=== PATIENT | female | born 1935 | race Hispanic/Latino ===

== ENCOUNTER 2018-07-03 10:50 | Emergency (ER) | payer OTHER ==
[~2018-07-03] VITALS: Ht 165.1 cm; Wt 72.1 kg
[~2018-07-03 10:50] MED LIST: DOXYCYCLINE HY100 MG PO; OMEPRAZOLE40 MG PO; SIMVASTATIN20 MG PO; VASOTEC5 MG PO
--- OUTSIDE RECORDS SUMMARY | 2018-07-03 10:52 | XMS REPORT ---
[facility] Address Unknown Phone Unavailable Care Team Providers Care Clinic Lpn Name Role Phone Unavailable Unavailable Problems This patient has no known problems. Allergies, Adverse Reactions, Alerts This patient has no known allergies or adverse reactions. Medications This patient has no known medications. Results Test Description Test Time Test Comments Text Results Atomic Results Result Comments SCR MAMM BILATERAL RIN CAD DIGITAL 2018-06-15 14:02:47 - SCR MAMM BILATERAL RIN CAD DIGITALBILATERAL DIGITAL SCREENING MAMMOGRAM 3D/2D WITH CAD: 06/08/2018CLINICAL: Asymptomatic. Digital breast tomosynthesis was performed in addition to routine CC and MLO views. Current mammographic images were evaluated by either a [employer] M-Vu or a [employer] ImageChecker CAD (computer aided detection system). Comparison is made to exams dated 04/23/2016 mammogram, 016 mammogram, 03/30/2014 mammogram, 01/26/2013 mammogram, and 04/05/2012 mammogram - [facility]. There are scattered fibroglandular tissues in both breasts. There are benign calcifications in the left breast. No suspicious mass, architectural distortion, malignant type calcification, or lymph node abnormality detected. Breast architecture is stable compared to prior exams.IMPRESSION: BENIGNThere is no mammographic evidence of malignancy. Resume annual screening mammography in one year. Jabier Vee M.D. et/penrad:06/15/2018 14:02:47 Attending Technologist: Gita Reed MM, [facility] Mobile MammographyImaging Technologist: Mary Cota MM, [facility] Mobile Mammographyletter sent: BIRADS 1-2 Normal Mammogram BI-RADS: 2 Benign
--- OUTSIDE RECORDS SUMMARY | 2018-07-03 10:52 | XMS REPORT | Clinical Summary ---
Author Author [facility] Address Unknown Phone Unavailable Care Team Providers Care Sanitarian Inspector Name Role Phone Helen Lockhatr MD PCP Allergies No Known Allergies Medications End Date Status Medication Sig Dispensed Refills Start Date Active simvastatin (ZOCOR) 5 MG Take 5 mg by 0 tablet mouth nightly. Active enalapril (VASOTEC) 10 MG Take 10 mg by 0 tablet mouth 2 (two) times a day. Active ferrous sulfate 325 (65 Take 325 mg 0 FE) MG tablet by mouth daily with breakfast. Active Problems Not on file Social History Date Tobacco Use Types Packs/Day Years Used Never Smoker Smokeless Tobacco: Never Used Alcohol Use Drinks/Week oz/Week Comments No Sex Assigned at Date Recorded Not on file Industry Job Start Date Occupation Not on file Not on file Not on file Travel End Travel History Travel Start No recent travel history available. Last Filed Vital Signs Not on file Plan of Treatment Health Maintenance Due Date Last Done Comments SHINGLES VACCINES (#1) 1984 65+ PNEUMOCOCCAL VACCINE 10/07/1999 (1 of 2 - PCV13) PNEUMOCOCCAL 10/07/1999 POLYSACCHARIDE VACCINE AGE 65 AND OVER INFLUENZA VACCINE 09/22/2018 Results Not on fileafter 07/02/2017 Insurance Payer Benefit Subscriber ID Type Phone Address Plan / Group [employer] xxxxxxxxx O [facility] (Home) [place] [address] Advance Directives Patient has advance care planning documents on file. For more information, clara orellana contact: Juni Guerra [address] [place] [address]
[2018-07-03] MEDS ORDERED: SODIUM CHLORIDE 0.9% 1000ML 1,000 ML IV STA (11:36)
[2018-07-03] MEDS ORDERED: DIATRIZOATE MEGL/DIATRIZOA SOD 30 ML BTL PO ONE (11:54)
[2018-07-03 12:33] LABS: BASOPHILS % 0.1 % (0.0-1.0); EOSINOPHILS % 0.1 % (0.0-6.0); HEMATOCRIT 37.1 % (34.2-44.1); LYMPHOCYTES # (AUTO) 1.8 (1.0-3.2); LYMPHOCYTES % 17.5 % (18.0-39.1); MEAN CORPUSCULAR HEMOGLOBIN 29.4 pg (28-32); MEAN CORPUSCULAR VOLUME 83.9 fL (81-99); MONOCYTES # (AUTO) 0.6 (0.2-0.8); PLATELET COUNT 221 x10e3/uL (140-360); RED BLOOD COUNT 4.42 x10e6/uL (3.6-5.1); RED CELL DISTRIBUTION WIDTH 12.6 % (11.7-14.4)
[2018-07-03 12:35] LABS: CLARITY,URINE HAZY (CLEAR); COLOR,URINE YELLOW (YELLOW); LEUKOCYTE ESTERASE ,URINE NEGATIVE (NEGATIVE)
[2018-07-03 12:36] LABS: BILIRUBIN,URINE NEGATIVE (NEGATIVE); KETONES,URINE NEGATIVE (NEGATIVE); NITRITE,URINE NEGATIVE (NEGATIVE); PROTEIN,URINE DIPSTICK NEGATIVE (NEGATIVE); URINE UROBILINOGEN 0.2 mg/dL (0.2 - 1)
[2018-07-03 12:38] LABS: BACTERIA,URINE FEW /HPF; EPITHELIAL CELLS,URINE FEW /LPF; WBC,URINE (MAN) 0-5 /HPF (0-5)
[2018-07-03 12:42] LABS: INR 0.96; PROTHROMBIN TIME 13.3 seconds (11.9-14.5)
[2018-07-03 12:43] LABS: PARTIAL THROMBOPLASTIN TIME 33.8 seconds (23.8-35.5)
--- NOTE | 2018-07-03 12:44 | Diagnostic Imaging Report ---
EXAMINATION: CHEST SINGLE (PORTABLE) COMPARISON: None INDICATION: Abdominal pain/pain in groin ^ABD PAIN ^[id number] ^1225 DISCUSSION: Frontal view of the chest obtained at 1224 hours. HEART AND MEDIASTINUM: The heart is mildly enlarged. The aorta contains calcifications in the arch. LINES: None. LUNGS: The lungs are well inflated and clear. No pneumonia or pulmonary edema. PLEURA: No pleural effusion or pneumothorax. BONES AND SOFT TISSUES: No focal osseous lesion. The soft tissues are normal. IMPRESSION: Mild cardiomegaly without vascular congestion. No acute pulmonary process. Signed by: Dr. Walter Medina MD on 07/03/2018 12:40 PM
[2018-07-03 12:50] LABS: ALANINE AMINOTRANSFERASE 17 IU/L (0-55); ALBUMIN/GLOBULIN RATIO 1.1 (0.8-2.0); ALKALINE PHOSPHATASE 85 IU/L (40-150); ANION GAP 12.5 mmol/L (8-16); BLOOD UREA NITROGEN 8 mg/dL (7-26); BUN/CREATININE RATIO 10 (6-25); CALCIUM 9.8 mg/dL (8.4-10.2); CARBON DIOXIDE 27 mmol/L (22-29); CHLORIDE 105 mmol/L (98-107); CREATINE KINASE 59 IU/L (29-168); CREATININE, SERUM 0.82 mg/dL (0.57-1.11); EST GLOMERULAR FILTRATION RATE > 60 ML/MIN (60-); GLUCOSE 139 mg/dL (74-118); MAGNESIUM 2.2 MG/DL (1.3-2.1); POTASSIUM 3.5 mmol/L (3.5-5.1); SODIUM 141 mmol/L (136-145)
--- NOTE | 2018-07-03 14:50 | Diagnostic Imaging Report ---
CT Abdomen And Pelvis with Intravenous Contrast INDICATION: Abdominal pain, groin pain ^LLQ ABD PAIN TECHNIQUE: Thin collimation axial images obtained from the diaphragm to the level of the pubic symphysis following the uneventful administration of 100 cc of low osmolar, nonionic intravenous contrast. Oral contrast was administered. Dose reduction techniques used: Automated exposure control, adjustment of the mAs and/or kVp according to patient size, standardized low-dose protocol, and/or iterative reconstruction technique. RADIATION DOSE: Total DLP: 502.8 mGy*cm Estimated effective dose: (DLP x 0.015 x size factor) mSv CTDIvol has been reviewed. It is below the limits set by the Radiation Protocol Committee (RPC). COMPARISON: None. ABDOMEN FINDINGS: Lung Bases: Mild cardiomegaly. Microatelectasis of the lung bases. Small hiatal hernia. Liver: Steatosis. Round hypervascular lesion in segment 2/3 may represent a hemangioma or shunt. This measures 9 mm. Low attenuating lesion in segment 4 adjacent to the falciform ligament measures 1.3 x 1.4 cm. This has the appearance of a cyst Gallbladder: Absent. No biliary ductal dilatation. Pancreas: Diffuse fatty atrophy. No mass or ductal dilatation. Spleen: Normal in size. No evidence of mass.. Adrenal Glands: No evidence for mass. Kidneys: Right: Normal enhancement. Focal cortical defect in the lateral upper pole near Morison's pouch. No mass. No hydronephrosis. Left: Normal enhancement. No soft tissue mass. No hydronephrosis. Lymph Nodes: No enlarged upper abdominal or periaortic lymph nodes. Aorta: Normal in diameter and diffusely calcified PELVIS FINDINGS: Bowel: Stomach: Collapsed but normal. Small Bowel: Normal in diameter with normal wall thickness. Large Bowel: Circumferential mural thickening of the mid descending colon extends for 2.9 cm. There is diverticulosis coli of the mid descending colon with adjacent peritoneal inflammation and engorgement of the adjacent vasculature. Diverticulosis is present around the remainder of the colon. Appendix: Not visualized and may be absent. Bladder: Normal. The uterus is absent. There are no adnexal masses. Lymph nodes: No enlarged mesenteric, pelvic, or inguinal lymph nodes. Bones: Diffuse demineralization. Degenerative changes of the spine particularly at L5-S1. No focal osseous lesions. IMPRESSION: 1. Circumferential mural thickening of the mid descending colon with associated inflammation and the presence of diverticulosis. Findings are concerning for colon neoplasm. Please correlate for signs/symptoms of infection that would indicate diverticulitis. If there is a superimposed infectious process, recommend antibiotic treatment followed by colonoscopy. No bowel obstruction. 2. Steatosis. Cholecystectomy. Normal biliary tree. Signed by: Dr. Walter Medina MD on 07/03/2018 2:47 PM
[2018-07-03 16:08] VITALS: BP 167/63
[2018-07-03] MEDS ORDERED: IOPAMIDOL 370 MG/ML 200 ML INFUS..BTL INJ ONE (17:36)
[2018-07-03] MEDS ORDERED: SODIUM CHLORIDE 0.9% 50ML 50 ML ONE (17:36)
== END 2018-07-03 16:23 | disposition home or self-care (01) ==
LOC: ER 10:50
DX: R10.32 Left lower quadrant pain (principal); K57.32 Diverticulitis of large intestine without perforation or abscess without bleeding; I10 Essential (primary) hypertension; K21.9 Gastro-esophageal reflux disease without esophagitis
CPT/HCPCS: 36415; 71045; 74177; 80053; 81001; 82550; 82553; 83735; 84484; 85025; 85610; 85730; 87086; 93005; 99284; J7030; Q9967

== ENCOUNTER 2018-12-23 01:15 | Emergency (ER) | payer OTHER ==
[~2018-12-23] VITALS: Ht 152.4 cm; Wt 72.1 kg
--- OUTSIDE RECORDS SUMMARY | 2018-12-23 01:18 | XMS REPORT | Summary of Care ---
Author Author HERNESTO CALDERON Organization Unknown Address Unknown Phone Unavailable Care Team Providers Care Marketing Automation Analyst Name Role Phone HERNESTO CALDERON Unavailable Unavailable RUBEN HENSLEY, ASHLYN Mendez Unavailable Unavailable KRYSTIN KNAPP MD Unavailable Unavailable CHANELLE HENSLEY, LION Rodriguez Unavailable Unavailable Unavailable Unavailable Functional Status Name Dates Details Functional status health issues are not documented Status: Name Dates Details Cognitive status health issues are not documented Status: Problems Name Dates Details High blood pressure (401.9, I10) Status: Active Sensorineural hearing loss, bilateral (389.18, H90.3) Status: Active Medications Name Dates Details Enalapril Maleate TABS Active Allergies and Adverse Reactions Name Dates Details No Known Allergies (Allergy) Status: Active Procedures Procedure Dates Details History of Hysterectomy Completed History of Section Completed History of Ear Surgery Completed Immunization Name Dates Details Immunizations not documented Family History Name Dates Details No pertinent family history (V49.89, Z78.9) Comments: Other Status: Active Social History Name Dates Details - Status: Name Dates Details Never smoker Vital Signs Date Test Result Details No Known Vitals to report Results Date Description Value Details Results not documented Plan of Care Name Dates Details Planned Observations Planned Goals not documented Instructions Name Dates Details Instructions not documented Encounters Appointment; MICHAELA WORTHINGTON Encounter Diagnosis: Problem not documented On: 09-Sep-2018 13:00 Appointment; KRYSTIN KNAPP M.D. Encounter Diagnosis: Problem not documented On: 11-Oct-2018 14:30 Appointment; HERNESTO CALDERON Encounter Diagnosis: Problem not documented On: 01-Nov-2018 14:30
[2018-12-23] MEDS ORDERED: HYDRALAZINE HCL 20 MG/ML VIAL IV STA (01:19)
[2018-12-23] MEDS ORDERED: DIPHENHYDRAMINE HCL INJ 50 MG/ML VIAL IV ONE (01:30)
[2018-12-23] MEDS ORDERED: FAMOTIDINE 20 MG/2 ML VIAL IV SCH (01:30)
[2018-12-23] MEDS ORDERED: METHYLPREDNISOLONE SOD SUCC 125 MG/2ML VIAL IV ONE (01:30)
[2018-12-23 06:31] VITALS: BP 158/73
[2018-12-23] MEDS ORDERED: PREDNISONE20 MG PO (06:34)
== END 2018-12-23 06:48 | disposition home or self-care (01) ==
LOC: ER 01:15
DX: T78.3XXA Angioneurotic edema, initial encounter (principal); T46.4X5A Adverse effect of angiotensin-converting-enzyme inhibitors, initial encounter; I10 Essential (primary) hypertension; E78.5 Hyperlipidemia, unspecified; K21.9 Gastro-esophageal reflux disease without esophagitis
CPT/HCPCS: 99283; J0360; J1200; J2930

== ENCOUNTER 2020-05-07 09:40 | Emergency (ER) | payer OTHER ==
[~2020-05-07] VITALS: Ht 165.1 cm; Wt 72.1 kg
[~2020-05-07 09:40] MED LIST changes: +PREDNISONE20 MG PO
[2020-05-07] MEDS ORDERED: ASPIRIN 81 MG CHEW TAB PO ONE (09:45)
[2020-05-07 10:31] LABS: BASOPHILS % 0.5 % (0.0-1.0); EOSINOPHILS # (AUTO) 0.1 (0.0-0.4); EOSINOPHILS % 0.9 % (0.0-6.0); HEMATOCRIT 38.1 % (34.2-44.1); HEMOGLOBIN 12.9 g/dL (12.0-16.0); LYMPHOCYTES % 34.6 % (18.0-39.1); MEAN CORPUSCULAR HEMOGLOBIN 28.5 pg (28-32); MEAN CORPUSCULAR HGB CONC 33.9 g/dL (31-35); MEAN CORPUSCULAR VOLUME 84.1 fL (81-99); MONOCYTES # (AUTO) 0.4 (0.2-0.8); MONOCYTES % 6.9 % (4.4-11.3); NEUTROPHILS # (AUTO) 3.3 (2.1-6.9); NEUTROPHILS % 56.8 % (38.7-80.0); PLATELET COUNT 242 x10e3/uL (140-360); RED BLOOD COUNT 4.53 x10e6/uL (3.6-5.1); RED CELL DISTRIBUTION WIDTH 12.9 % (11.7-14.4)
[2020-05-07 10:53] LABS: ALANINE AMINOTRANSFERASE 14 IU/L (0-55); ALBUMIN 4.2 g/dL (3.5-5.0); ALKALINE PHOSPHATASE 62 IU/L (40-150); ANION GAP 14.6 mmol/L (8-16); BLOOD UREA NITROGEN 11 mg/dL (7-26); BUN/CREATININE RATIO 13 (6-25); CALCIUM 9.2 mg/dL (8.4-10.2); CARBON DIOXIDE 22 mmol/L (22-29); CHLORIDE 107 mmol/L (98-107); CREATINE KINASE 59 IU/L (29-168); CREATININE, SERUM 0.87 mg/dL (0.57-1.11); EST GLOMERULAR FILTRATION RATE > 60 ML/MIN (60-); GLUCOSE 152 mg/dL (74-118); POTASSIUM 3.6 mmol/L (3.5-5.1); SODIUM 140 mmol/L (136-145)
[2020-05-07] MEDS ORDERED: AUGMENTIN 875-1 EACH PO (11:44)
== END 2020-05-07 14:05 | disposition home or self-care (01) ==
LOC: ER 09:50
DX: J30.9 Allergic rhinitis, unspecified (principal); M79.89 Other specified soft tissue disorders; I10 Essential (primary) hypertension; E78.5 Hyperlipidemia, unspecified; K21.9 Gastro-esophageal reflux disease without esophagitis
CPT/HCPCS: 36415; 70486; 71045; 80053; 82550; 82553; 83880; 84484; 85025; 93005; 93971; 99284

== ENCOUNTER 2021-02-07 11:30 | Emergency (ER) | payer OTHER ==
[~2021-02-07] VITALS: Ht 165.1 cm; Wt 72.1 kg
[~2021-02-07 11:30] MED LIST changes: +AUGMENTIN 875-1 EACH PO
[2021-02-07] MEDS ORDERED: SODIUM CHLORIDE 0.9% 500ML 500 ML IV ONE (12:00)
[2021-02-07 12:03] LABS: BASOPHILS % 0.4 % (0.0-1.0); EOSINOPHILS % 0.3 % (0.0-6.0); HEMOGLOBIN 13.1 g/dL (12.0-16.0); LYMPHOCYTES # (AUTO) 1.5 (1.0-3.2); LYMPHOCYTES % 22.6 % (18.0-39.1); MEAN CORPUSCULAR HEMOGLOBIN 29.1 pg (28-32); MEAN CORPUSCULAR HGB CONC 32.8 g/dL (31-35); MEAN CORPUSCULAR VOLUME 88.9 fL (81-99); MONOCYTES # (AUTO) 0.4 (0.2-0.8); MONOCYTES % 5.7 % (4.4-11.3); NEUTROPHILS # (AUTO) 4.8 (2.1-6.9); NEUTROPHILS % 70.9 % (38.7-80.0); PLATELET COUNT 223 x10e3/uL (140-360); RED CELL DISTRIBUTION WIDTH 12.6 % (11.7-14.4)
[2021-02-07 12:23] LABS: ALANINE AMINOTRANSFERASE 14 IU/L (0-55); ALBUMIN 3.9 g/dL (3.5-5.0); ALBUMIN/GLOBULIN RATIO 1.1 (0.8-2.0); ALKALINE PHOSPHATASE 64 IU/L (40-150); ANION GAP 14.9 mmol/L (8-16); BLOOD UREA NITROGEN 10 mg/dL (7-26); BUN/CREATININE RATIO 13 (6-25); CALCIUM 9.7 mg/dL (8.4-10.2); CARBON DIOXIDE 25 mmol/L (22-29); CHLORIDE 104 mmol/L (98-107); CREATINE KINASE 75 IU/L (29-168); CREATININE, SERUM 0.75 mg/dL (0.57-1.11); EST GLOMERULAR FILTRATION RATE 73 ML/MIN (60-); GLUCOSE 118 mg/dL (74-118); MAGNESIUM 2.1 MG/DL (1.3-2.1); SODIUM 141 mmol/L (136-145)
[2021-02-07 12:26] LABS: POTASSIUM 2.9 mmol/L (3.5-5.1)
[2021-02-07 12:28] LABS: CLARITY,URINE CLEAR (CLEAR); COLOR,URINE YELLOW (YELLOW); KETONES,URINE NEGATIVE (NEGATIVE); LEUKOCYTE ESTERASE ,URINE NEGATIVE (NEGATIVE); NITRITE,URINE NEGATIVE (NEGATIVE); PROTEIN,URINE DIPSTICK NEGATIVE (NEGATIVE)
[2021-02-07 12:29] LABS: URINE UROBILINOGEN 0.2 mg/dL (0.2 - 1)
[2021-02-07 12:34] LABS: BACTERIA,URINE FEW /HPF; EPITHELIAL CELLS,URINE FEW /LPF; WBC,URINE (MAN) 0-5 /HPF (0-5)
[2021-02-07] MEDS ORDERED: POTASSIUM CHLORIDE 20 MEQ TAB CR PO STA (12:45)
== END 2021-02-07 14:41 | disposition home or self-care (01) ==
LOC: ER 11:52
DX: R42 Dizziness and giddiness (principal); E86.0 Dehydration; I10 Essential (primary) hypertension; E78.5 Hyperlipidemia, unspecified; K21.9 Gastro-esophageal reflux disease without esophagitis
CPT/HCPCS: 36415; 70450; 71045; 80053; 81001; 82550; 82553; 83735; 84484; 85025; 87086; 93005; 99284; J7040

== ENCOUNTER 2022-01-01 23:50 | Emergency (ER) | payer MEDICARE, OTHER ==
[~2022-01-01] VITALS: Ht 165.1 cm; Wt 72.1 kg
[2022-01-02 00:33] LABS: BASOPHILS % 0.3 % (0.0-1.0); EOSINOPHILS # (AUTO) 0.1 (0.0-0.4); EOSINOPHILS % 1.5 % (0.0-6.0); HEMATOCRIT 36.8 % (34.2-44.1); HEMOGLOBIN 12.2 g/dL (12.0-16.0); LYMPHOCYTES # (AUTO) 1.7 (1.0-3.2); LYMPHOCYTES % 28.1 % (18.0-39.1); MEAN CORPUSCULAR HEMOGLOBIN 29.6 pg (28-32); MEAN CORPUSCULAR HGB CONC 33.2 g/dL (31-35); MEAN CORPUSCULAR VOLUME 89.3 fL (81-99); MONOCYTES # (AUTO) 0.6 (0.2-0.8); MONOCYTES % 10.6 % (4.4-11.3); NEUTROPHILS # (AUTO) 3.5 (2.1-6.9); NEUTROPHILS % 59.3 % (38.7-80.0); PLATELET COUNT 199 x10e3/uL (140-360); RED BLOOD COUNT 4.12 x10e6/uL (3.6-5.1); RED CELL DISTRIBUTION WIDTH 12.7 % (11.7-14.4)
[2022-01-02 00:54] LABS: ALBUMIN 4.1 g/dL (3.5-5.0); ALBUMIN/GLOBULIN RATIO 1.1 (0.8-2.0); ANION GAP 14.9 mmol/L (8-16); CALCIUM 9.2 mg/dL (8.4-10.2); CREATININE, SERUM 0.85 mg/dL (0.57-1.11)
[2022-01-02 00:58] LABS: POTASSIUM 2.9 mmol/L (3.5-5.1)
[2022-01-02] MEDS ORDERED: POTASSIUM CHLORIDE 20 MEQ TAB CR PO STA (01:01)
[2022-01-02 01:31] LABS: BACTERIA,URINE RARE /HPF; CLARITY,URINE CLEAR (CLEAR); COLOR,URINE YELLOW (YELLOW); EPITHELIAL CELLS,URINE FEW /LPF; KETONES,URINE NEGATIVE (NEGATIVE); LEUKOCYTE ESTERASE ,URINE NEGATIVE (NEGATIVE); NITRITE,URINE NEGATIVE (NEGATIVE); PROTEIN,URINE DIPSTICK NEGATIVE (NEGATIVE); RBC,URINE 0-5 /HPF (0-5); URINE UROBILINOGEN 0.2 mg/dL (0.2 - 1); WBC,URINE (MAN) 0-5 /HPF (0-5)
[2022-01-02 02:05] VITALS: BP 162/74
== END 2022-01-02 02:05 | disposition home or self-care (01) ==
LOC: ER 01-02 00:11
DX: R00.2 Palpitations (principal); E87.6 Hypokalemia; I10 Essential (primary) hypertension; E78.5 Hyperlipidemia, unspecified; K21.9 Gastro-esophageal reflux disease without esophagitis; R94.31 Abnormal electrocardiogram [ECG] [EKG]
CPT/HCPCS: 36415; 71045; 80053; 81001; 83880; 84484; 85025; 93005; 99284

== ENCOUNTER 2022-04-26 18:48 | Emergency (ER) | payer MEDICARE ==
[~2022-04-26] VITALS: Ht 165.1 cm; Wt 72.1 kg
[2022-04-26 19:26] VITALS: BP 169/73
== END 2022-04-26 19:25 | disposition home or self-care (01) ==
LOC: ER 19:04
DX: I10 Essential (primary) hypertension (principal); E78.5 Hyperlipidemia, unspecified; K21.9 Gastro-esophageal reflux disease without esophagitis
CPT/HCPCS: 36415; 82948; 99283

== ENCOUNTER 2024-04-21 00:27 | Emergency (ER) | payer MEDICARE ==
[~2024-04-21] VITALS: Ht 165.1 cm; Wt 72.1 kg
[2024-04-21 00:45] VITALS: TEMP 98.1
[2024-04-21 00:56] LABS: BASOPHILS % 0.3 % (0.0-1.0); EOSINOPHILS % 0.6 % (0.0-6.0); HEMATOCRIT 37.9 % (34.2-44.1); HEMOGLOBIN 13.5 g/dL (12.0-16.0); LYMPHOCYTES # (AUTO) 1.2 (1.0-3.2); LYMPHOCYTES % 16.2 % (18.0-39.1); MEAN CORPUSCULAR HEMOGLOBIN 29.6 pg (28-32); MEAN CORPUSCULAR HGB CONC 35.6 g/dL (31-35); MEAN CORPUSCULAR VOLUME 83.1 fL (81-99); MONOCYTES # (AUTO) 0.6 (0.2-0.8); MONOCYTES % 8.3 % (4.4-11.3); NEUTROPHILS # (AUTO) 5.3 (2.1-6.9); NEUTROPHILS % 74.3 % (38.7-80.0); PLATELET COUNT 185 x10e3/uL (140-360); RED BLOOD COUNT 4.56 x10e6/uL (3.6-5.1); RED CELL DISTRIBUTION WIDTH 12.2 % (11.7-14.4); WHITE BLOOD COUNT 7.14 x10e3/uL (4.8-10.8)
[2024-04-21] MEDS: SODIUM CHLORIDE 0.9% 1000ML 1,000 ML IV STA (00:57)
[2024-04-21 01:24] LABS: ALBUMIN 4.1 g/dL (3.5-5.0); ALBUMIN/GLOBULIN RATIO 1.2 (0.8-2.0); ANION GAP 15.9 mmol/L (8-16); BILIRUBIN,TOTAL 1.3 mg/dL (0.2-1.2); CALCIUM 9.3 mg/dL (8.4-10.2); CREATININE, SERUM 0.85 mg/dL (0.57-1.11); TOTAL PROTEIN 7.6 g/dL (6.5-8.1)
[2024-04-21 01:31] LABS: BILIRUBIN,URINE SMALL (NEGATIVE); CLARITY,URINE CLOUDY (CLEAR); COLOR,URINE RED (YELLOW); GLUCOSE, URINE 500 (NEGATIVE); KETONES,URINE NEGATIVE (NEGATIVE); LEUKOCYTE ESTERASE ,URINE LARGE (NEGATIVE); NITRITE,URINE POSITIVE (NEGATIVE); PH,URINE 6 (5 - 7); PROTEIN,URINE DIPSTICK 1+ (NEGATIVE); URINE UROBILINOGEN 0.2 mg/dL (0.2 - 1)
[2024-04-21 01:43] LABS: RBC,URINE >50 /HPF (0-5)
[2024-04-21 01:44] LABS: BACTERIA,URINE MODERATE /HPF; EPITHELIAL CELLS,URINE FEW /LPF
[2024-04-21 01:50] LABS: POTASSIUM 2.9 mmol/L (3.5-5.1)
[2024-04-21] MEDS ORDERED: IOPAMIDOL 370 MG/ML 100 ML INFUS..BTL INJ ONE (02:22)
[2024-04-21] MEDS: POTASSIUM CHLORIDE 20 MEQ TAB CR PO STA (03:03)
[2024-04-21] MEDS: AMOXICILLIN/CLAVULANATE K 500 MG TAB PO STA (03:03)
[2024-04-21 03:05] VITALS: PULSE 78; RESP 18
[2024-04-21] MEDS ORDERED: AUGMENTIN 500-1 EACH PO (03:26)
[2024-04-21] MEDS ORDERED: FLOMAX0.4 MG PO (03:26)
[2024-04-21 03:40] VITALS: BP 152/87; PULSE 87; RESP 18; TEMP 98; O2SAT 98
== END 2024-04-21 03:41 | disposition home or self-care (01) ==
LOC: ER 00:35
DX: N30.91 Cystitis, unspecified with hematuria (principal); E87.6 Hypokalemia; K86.9 Disease of pancreas, unspecified; I10 Essential (primary) hypertension; E78.5 Hyperlipidemia, unspecified; K21.9 Gastro-esophageal reflux disease without esophagitis
CPT/HCPCS: 36415; 74177; 80053; 81001; 83690; 85025; 87086; 87186; 99284; J7030; Q9967